=== PATIENT | male | born 1980 | race Caucasian/White ===

== ENCOUNTER → 2017-04-10 12:27 | Outpatient (CLI) | payer MEDICARE ==
[2013-05-31 02:23] VITALS: BMI 25.8
[~2017-04-10 12:27] MED LIST: ENDOCET 7.5/3251 TAB PO; NORCO 10/325 TA1 TA1 PO; XANAX0.25 MG PO
== END | disposition home or self-care (01) ==
LOC: D.MRI 12:27
DX: S80.01XA Contusion of right knee, initial encounter (principal); M54.16 Radiculopathy, lumbar region

== ENCOUNTER 2017-06-09 15:49 | Emergency (ER) | payer MEDICARE ==
[2013-05-31 02:23] VITALS: BMI 25.8
[2017-06-09 17:05] LABS: BASOPHILS 0.5 % (0-2); EOSINOPHILS 4.6 % (0-7); HEMATOCRIT 44.4 % (42.0-54.0); HEMOGLOBIN 14.6 g/dL (13.5-17.5); IMMATURE GRANULOCYTES 0.3 % (0-5); LYMPHOCYTES 30.8 % (15-50); MCH 29.9 pg (26.0-34.0); MCHC 32.9 g/dL (31.0-37.0); MONOCYTES 7.4 % (2-11); NEUTROPHILS 56.4 % (40-80); RBC 4.88 10x6/uL (4.20-6.10); RDW 13.9 % (11.5-14.5); WBC 7.7 10x3/uL (4.8-10.8)
[2017-06-09 17:10] LABS: PLATELET COUNT 188 10x3/uL (130-400)
== END 2017-06-09 21:08 | disposition home or self-care (01) ==
LOC: D.ER 15:49
PROVIDERS: Emergency Medicine
DX: J44.9 Chronic obstructive pulmonary disease, unspecified (principal); F17.200 Nicotine dependence, unspecified, uncomplicated

== ENCOUNTER 2017-06-16 13:21 | Emergency (ER) | payer MEDICARE ==
[2013-05-31 02:23] VITALS: BMI 25.8
== END 2017-06-16 15:21 | disposition home or self-care (01) ==
LOC: D.ER 13:21
DX: B34.9 Viral infection, unspecified (principal); J44.9 Chronic obstructive pulmonary disease, unspecified; F17.200 Nicotine dependence, unspecified, uncomplicated

== ENCOUNTER 2017-08-15 17:54 | Emergency (ER) | payer MEDICARE ==
[2013-05-31 02:23] VITALS: BMI 25.8
== END 2017-08-15 20:09 | disposition home or self-care (01) ==
LOC: D.ER 17:54
DX: R07.89 Other chest pain (principal); B37.0 Candidal stomatitis; F41.9 Anxiety disorder, unspecified; F17.200 Nicotine dependence, unspecified, uncomplicated

== ENCOUNTER 2019-05-14 22:50 | Emergency (ER) | payer MEDICARE ==
[~2019-05-14] VITALS: Ht 180.3 cm; Wt 81.8 kg
[2019-05-14 22:56] VITALS: Ht 180.3 cm; Wt 81.8 kg
[2019-05-14] MEDS ORDERED: LYRICA150 MG PO (22:57)
[2019-05-14 23:27] LABS: BASOPHILS 0.4 % (0-2); EOSINOPHILS 1.2 % (0-7); HEMATOCRIT 36.9 % (42.0-54.0); HEMOGLOBIN 12.8 g/dL (13.5-17.5); IMMATURE GRANULOCYTES 0.3 % (0-5); LYMPHOCYTES 28.2 % (15-50); MCH 30.6 pg (26.0-34.0); MCHC 34.7 g/dL (31.0-37.0); MCV 88.3 fL (80.0-100.0); MONOCYTES 9.6 % (2-11); NEUTROPHILS 60.3 % (40-80); PLATELET COUNT 306 10x3/uL (130-400); RBC 4.18 10x6/uL (4.20-6.10); RDW 13.2 % (11.5-14.5); WBC 12.3 10x3/uL (4.8-10.8)
[2019-05-14 23:41] LABS: ALBUMIN 3.6 g/dL (3.4-5.0); ALKALINE PHOSPHATASE 96 U/L (46-116); ALT (SGPT) 26 U/L (10-68); BILIRUBIN - TOTAL 0.73 mg/dL (0.2-1.3); CALC OSMOLALITY 275 mosm/kg (275-300); CALCIUM 8.3 mg/dL (8.5-10.1); CARBON DIOXIDE 27.2 mmol/L (21.0-32.0); CHLORIDE - SERUM 104 mmol/L (98-107); GLUCOSE 77 mg/dL (74-106); POTASSIUM - SERUM 4.2 mmol/L (3.5-5.1); SODIUM 139 mmol/L (136-145); UREA NITROGEN 9 mg/dL (7-18); eGFR NON AFRICAN AMERICAN 89 mL/min (90-120)
[2019-05-15] LABS: CREATINE KINASE 376 UL (21-232); LIPASE 161 U/L (73-393)
[2019-05-15 00:22] LABS: APPEARANCE CLEAR (CLEAR); BILIRUBIN NEGATIVE (NEGATIVE); COLOR STRAW (YELLOW); GLUCOSE NEGATIVE (NEGATIVE); KETONE NEGATIVE (NEGATIVE); NITRITE NEGATIVE (NEGATIVE); PROTEIN NEGATIVE (NEGATIVE); UROBILINOGEN NORMAL (NORMAL)
[2019-05-15 00:29] LABS: UDS - AMPHET NEGATIVE QUAL (NEGATIVE); UDS - BARB NEGATIVE QUAL (NEGATIVE); UDS - BENZO NEGATIVE QUAL (NEGATIVE); UDS - COCAINE NEGATIVE QUAL (NEGATIVE); UDS - OPIATE NEGATIVE QUAL (NEGATIVE); UDS - PCP NEGATIVE QUAL (NEGATIVE); UDS - THC POSITIVE QUAL (NEGATIVE)
[2019-05-15] MEDS ORDERED: DICLOFENAC SODI50 MG PO (01:22)
[2019-05-15 01:57] VITALS: BP 121/63
== END 2019-05-15 01:58 | disposition home or self-care (01) ==
LOC: D.ER 22:50
PROVIDERS: Family Medicine
DX: S82.301A Unspecified fracture of lower end of right tibia, initial encounter for closed fracture (principal); Y09 Assault by unspecified means

== ENCOUNTER → 2020-05-28 14:11 | Outpatient (CLI) | payer MEDICARE ==
[2019-05-14 22:56] VITALS: BMI 25.1
[~2020-05-28 14:11] MED LIST changes: +DICLOFENAC SODI50 MG PO; +LYRICA150 MG PO; +PERCOCET 10-321 EAC1 PO
== END | disposition home or self-care (01) ==
LOC: D.MRI 14:11
PROVIDERS: ATTEND Clinical Nurse Specialist Family Health
DX: M25.522 Pain in left elbow (principal)

== ENCOUNTER 2020-05-28 15:37 | Emergency (ER) | payer MEDICARE ==
[~2020-05-28] VITALS: Ht 180.3 cm; Wt 79.5 kg
[~2020-05-28 15:37] MED LIST changes: -PERCOCET 10-321 EAC1 PO
[2020-05-28 15:46] VITALS: BP 145/74; Ht 180.3 cm; Wt 79.5 kg
[2020-05-28] MEDS ORDERED: PERCOCET 10-321 EAC1 PO (16:43)
== END 2020-05-28 17:03 | disposition home or self-care (01) ==
LOC: D.ER 15:37
DX: L98.499 Non-pressure chronic ulcer of skin of other sites with unspecified severity (principal); S61.214A Laceration without foreign body of right ring finger without damage to nail, initial encounter; W22.8XXA Striking against or struck by other objects, initial encounter; Y93.9 Activity, unspecified; Y92.9 Unspecified place or not applicable; G62.9 Polyneuropathy, unspecified

== ENCOUNTER → 2020-10-28 15:26 | Outpatient (CLI) | payer MEDICARE ==
[2020-05-28 15:46] VITALS: BMI 24.4
[~2020-10-28 15:26] MED LIST changes: +PERCOCET 10-321 EAC1 PO
== END | disposition home or self-care (01) ==
LOC: D.LAB 15:26
PROVIDERS: ATTEND Orthopaedic Surgery
DX: G56.22 Lesion of ulnar nerve, left upper limb (principal); M77.02 Medial epicondylitis, left elbow

== ENCOUNTER 2020-11-05 10:44 | Day surgery (SDC) | payer MEDICARE ==
[~2020-11-05] VITALS: Ht 180.3 cm; Wt 77.1 kg
[2020-11-05] MEDS ORDERED: VISTARIL50 MG PO (11:20)
[2020-11-05] MEDS ORDERED: IMITREX50 MG PO (11:21)
[2020-11-05] MEDS ORDERED: NAPROSYN500 MG PO (11:23)
[2020-11-05 11:31] VITALS: BP 142/84; Ht 180.3 cm; Wt 77.1 kg
--- NOTE | 2020-11-05 17:59 | NUR ---
PT DISPLAYS ANXIETY AND VERBALIZES SAME. ASKS SAME QUESTIONS CONTINUALLY. REPORTS PAIN 10/10 AFTER IV MEDS. VSS. SLEEPS WHEN UNDISTURBED. EATS EAGERLY. DISCUSSED DISCHARGE PLAN OF CARE AT LENGTH WITH PT AND PARTNER. LUE IS NUMB TO TOUCH AND MOVEMENTAND PT REPORTS PAIN 10/10. RX'D WITH PERCOCET AND DISCHARGED WITHOUT C/O
--- NOTE | 2020-11-09 07:01 | OP ---
PATIENT NAME: YOAN BAEZ MEDICAL RECORD: [id number] :80 LOCATION:[facility] ADMISSION DATE: SURGEON: CRISTIANO NEW DO DATE OF OPERATION: 11/05/2020 PROCEDURE PERFORMED: Left medial epicondylectomy with tendon repair and cubital tunnel release. PREOPERATIVE DIAGNOSIS: Left cubital tunnel syndrome and flexor tendon insertion tear or medial epicondylitis. POSTOPERATIVE DIAGNOSIS: Left cubital tunnel syndrome and flexor tendon insertion tear or medial epicondylitis. INDICATIONS: Mr. Baez is a 40-year-old male who has had left elbow pain for quite some time, tingling down into the hand. He had nerve conduction studies showing the cubital tunnel syndrome and MRI showing a partially torn flexor tendon insertion on the medial epicondyle. 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 SURGEON: Cristiano New DO DESCRIPTION OF PROCEDURE: The patient was taken to the operative suite after given a block by anesthesia in the preoperative area, given 2 grams of Ancef preoperatively. The patient was sedated and LMA was placed. The left upper extremity was then prepped and draped in sterile fashion. A timeout was performed. Everyone was in agreement with the correct site, side, patient, and procedure. I then began by exsanguinating the left upper extremity with an Esmarch, tourniquet was inflated to 250 mmHg, was up for 15 minutes. I then made an incision just inferior to the medial epicondyle of the elbow and made careful dissection down to the ulnar nerve, released it proximally and distally, freed it up, and then addressed the medial epicondyle, exposed the medial epicondyle, and made a linear incision down through the tendon and peeled them off the medial condyle, rongeured off the medial condyle to get good bone bleeding and put a 1.45 JuggerKnot suture anchor in and sutured the flexor tendon up and down and tied it down at the insertion. I then cut the sutures. The tourniquet was let down. The incision was then closed by Gabi Castanon, certified surgical aides teacher, with 3-0 Vicryl in inverted interrupted fashion and 4-0 Monocryl running on the skin. He was then dressed with Steri-Strips, Adaptic, 4 x 4, cast padding, and Coban lightly wrapped and then placed in a removable wrist splint. He was then awakened and taken to recovery in stable condition. BLOOD LOSS: Minimal. COMPLICATIONS: None. TRANSINT:[id number] Voice Confirmation ID: [id number] DOCUMENT ID: [id number] OPERATIVE REPORT [id number] YOAN BAEZ MICHAEL D, DO at 0701 CC: [id number] DICTATION DATE: 11/05/20 1313 BOND BROKER: 11/05/20 1925 [facility] 11/05/20 [id number] [place] [address]
== END 2020-11-05 15:20 | disposition home or self-care (01) ==
LOC: D.OPS 10:44
PROVIDERS: ATTEND Orthopaedic Surgery
DX: G56.22 Lesion of ulnar nerve, left upper limb (principal); M77.02 Medial epicondylitis, left elbow; M25.522 Pain in left elbow; I10 Essential (primary) hypertension